=== PATIENT | female | born 1975 | race Caucasian/White ===

== ENCOUNTER 2018-10-05 12:37 | Observation (INO) | payer MEDICAID ==
[~2018-10-05] VITALS: Ht 170.2 cm; Wt 93.4 kg
--- NOTE | 2018-10-05 12:47 | NUR ---
PT TAKEN TO L&D AT THIS TIME.
[2018-10-05 13:24] VITALS: BP 92/54
[2018-10-05] MEDS ORDERED: FERR-252 PO (14:08)
[2018-10-05] MEDS ORDERED: PREN-380 PO (14:08)
[2018-10-05 14:46] LABS: BASOPHILS % (AUTO) 0.5 % (0.0-2.0); EOSINOPHILS # (AUTO) 0.1 K/uL (0-0.4); EOSINOPHILS % (AUTO) 1.3 % (0.0-4.0); HEMOGLOBIN 13.4 g/dL (12.0-16.0); LYMPHOCYTES # (AUTO) 1.2 K/uL (2.5-16.5); LYMPHOCYTES % (AUTO) 15.5 % (20.5-51.1); MEAN CORPUSCULAR HEMOGLOBIN 32 pg (27-31); MEAN CORPUSCULAR HGB CONC 33 g/dL (33-37); MEAN CORPUSCULAR VOLUME 94.6 fL (80-94); MONOCYTES # (AUTO) 0.6 K/uL (0.8-1.0); MONOCYTES % (AUTO) 8.4 % (1.7-9.3); NEUTROPHILS # (AUTO) 5.7 K/uL (1.8-7.7); NEUTROPHILS % (AUTO) 74.3 % (42.2-75.2); PLATELET COUNT (AUTO) 172 K/uL (140-450); RED BLOOD CELL COUNT(AUTO) 4.23 MIL/uL (4.20-5.40); RED CELL DISTRIBUTION WIDTH 14.7 % (11.6-13.7); WHITE BLOOD COUNT (AUTO) 7.7 K/uL (4.8-10.8)
[2018-10-05 15:04] LABS: ALBUMIN 2.7 g/dL (3.4-5.0); CARBON DIOXIDE 26.3 mmol/L (21-32); CREATININE 0.6 mg/dL (0.6-1.3); POTASSIUM 4.3 mmol/L (3.5-5.1); TOTAL BILIRUBIN 0.4 mg/dL (0.0-1.0)
[2018-10-05 15:13] LABS: APPEARANCE,URINE CLEAR (CLEAR); BILIRUBIN,URINE NEGATIVE (NEGATIVE); BLOOD, URINE TRACE-L (NEGATIVE); COLOR,URINE YELLOW (YELLOW); LEUKOCYTE ESTERASE ,URINE NEGATIVE (NEGATIVE); NITRITE, URINE NEGATIVE (NEGATIVE); UGLUCOSE NEGATIVE (NEGATIVE)
[2018-10-05 15:25] LABS: RBC,URINE 0 /HPF (0-5); WBC,URINE 0-5 /HPF (0-5)
== END 2018-10-05 16:35 | disposition home or self-care (01) ==
LOC: MED 12:37 → MLD 12:48 → INTOOBSV 13:00
PROVIDERS: ADMIT Obstetrics & Gynecology; ATTEND Obstetrics & Gynecology
DX: O26.893 Other specified pregnancy related conditions, third trimester (principal); R10.9 Unspecified abdominal pain; O21.2 Late vomiting of pregnancy; Z3A.29 29 weeks gestation of pregnancy
CPT/HCPCS: 36415; 80053; 81001; 85025; G0378; 99281

== ENCOUNTER 2018-12-14 09:36 | Inpatient (IN) | payer MEDICAID ==
[~2018-12-14] VITALS: Ht 170.2 cm; Wt 98.9 kg
[~2018-12-14 09:36] MED LIST: FERR-252 PO; PREN-380 PO
[2018-12-14] MEDS ORDERED: LACTATED RINGERS 1,000 ML IV SCH (10:04)
[2018-12-14] MEDS ORDERED: CARBOPROST 250 MCG/ML AMP IM PRN (10:05)
[2018-12-14] MEDS ORDERED: METHYLERGONOVINE 0.2 MG/ML AMP IM PRN (10:05)
[2018-12-14] MEDS ORDERED: NALBUPHINE 10 MG/ML AMP IVP PRN (10:05)
[2018-12-14] MEDS ORDERED: PROMETHAZINE 25 MG/ML VIAL IVP PRN (10:05)
[2018-12-14 10:15] VITALS: BP 106/59
[2018-12-14 10:41] LABS: BASOPHILS % (AUTO) 0.5 % (0.0-2.0); EOSINOPHILS # (AUTO) 0.1 K/uL (0-0.4); EOSINOPHILS % (AUTO) 0.8 % (0.0-4.0); HEMATOCRIT 39.6 % (36-48); HEMOGLOBIN 13.1 g/dL (12.0-16.0); LYMPHOCYTES # (AUTO) 1.1 K/uL (2.5-16.5); LYMPHOCYTES % (AUTO) 13.4 % (20.5-51.1); MEAN CORPUSCULAR HEMOGLOBIN 31 pg (27-31); MEAN CORPUSCULAR HGB CONC 33 g/dL (33-37); MONOCYTES # (AUTO) 0.7 K/uL (0.8-1.0); MONOCYTES % (AUTO) 9.2 % (1.7-9.3); NEUTROPHILS # (AUTO) 6.1 K/uL (1.8-7.7); NEUTROPHILS % (AUTO) 76.1 % (42.2-75.2); PLATELET COUNT (AUTO) 174 K/uL (140-450); RED BLOOD CELL COUNT(AUTO) 4.26 MIL/uL (4.20-5.40); RED CELL DISTRIBUTION WIDTH 14.6 % (11.6-13.7)
[2018-12-14 10:56] LABS: BILIRUBIN,URINE NEGATIVE (NEGATIVE); BLOOD, URINE TRACE-I (NEGATIVE); COLOR,URINE YELLOW (YELLOW); LEUKOCYTE ESTERASE ,URINE 1+ (NEGATIVE); NITRITE, URINE NEGATIVE (NEGATIVE); UGLUCOSE NEGATIVE (NEGATIVE)
[2018-12-14] MEDS ORDERED: AMPICILLIN 2,000 MG in NACL 0.9% MINI-BAG PLUS 100 ML IV SCH (11:00)
[2018-12-14 11:22] LABS: APPEARANCE,URINE SLIGHTLY HAZY (CLEAR)
[2018-12-14 11:23] LABS: RBC,URINE 0-5 /HPF (0-5)
[2018-12-14 11:24] LABS: WBC,URINE 0-5 /HPF (0-5)
[2018-12-14] MEDS ORDERED: AMPICILLIN 2,000 MG VIAL ONE (11:39)
[2018-12-14 12:07] LABS: POTASSIUM 4.1 mmol/L (3.5-5.1)
[2018-12-14 12:08] LABS: ALBUMIN 2.6 g/dL (3.4-5.0); ANION GAP 14.1 (8-16); CREATININE 0.6 mg/dL (0.6-1.3); TOTAL BILIRUBIN 0.3 mg/dL (0.0-1.0)
[2018-12-14] MEDS ORDERED: MISOPROSTOL 25 MCG TAB ONE ×2 (14:39→18:50)
[2018-12-14] MEDS: MISOPROSTOL 25 MCG TAB VG PRN ×2 (14:42→18:55)
[2018-12-14] MEDS ORDERED: MISOPROSTOL 200 MCG TAB VG SCH (18:00)
[2018-12-14] MEDS ORDERED: AMPICILLIN 1,000 MG VIAL ONE ×2 (18:49→22:50)
[2018-12-14] MEDS: AMPICILLIN 1,000 MG in NACL 0.9% MINI-BAG PLUS 50 ML IV SCH ×2 (18:57→22:55)
[2018-12-14] MEDS ORDERED: NALBUPHINE 10 MG/ML AMP ONE (23:36)
[2018-12-14] MEDS ORDERED: PROMETHAZINE 25 MG/ML VIAL ONE (23:36)
[2018-12-15] MEDS ORDERED: OXYTOCIN 20 UNITS/LR PREMIX 1,000 ML IV ONE (00:59)
[2018-12-15] MEDS ORDERED: MEASLES, MUMPS, AND RUBELLA 1 VIAL SQVAC PRN (01:50)
[2018-12-15] MEDS ORDERED: BENZOCAINE/MENTHOL 20%-0.5% 60 GM CAN TP PRN (01:50)
[2018-12-15] MEDS ORDERED: METHYLERGONOVINE 0.2 MG TAB PO PRN (01:50)
[2018-12-15] MEDS ORDERED: OXYTOCIN 10 UNITS/ML VIAL IM PRN (01:50)
[2018-12-15] MEDS ORDERED: METHYLERGONOVINE 0.2 MG/ML AMP IM PRN (01:50)
[2018-12-15] MEDS ORDERED: METHYLERGONOVINE 0.2 MG/ML AMP ONE (04:12)
[2018-12-15] MEDS: IBUPROFEN 800 MG TAB PO PRN ×2 (09:52→22:22)
[2018-12-15] MEDS ORDERED: LACTATED RINGERS 1,000 ML IV SCH ×2 (12:50)
[2018-12-15 13:02] LABS: BASOPHILS % (AUTO) 0.2 % (0.0-2.0); EOSINOPHILS % (AUTO) 0.3 % (0.0-4.0); HEMATOCRIT 36.8 % (36-48); HEMOGLOBIN 12.1 g/dL (12.0-16.0); LYMPHOCYTES # (AUTO) 1.2 K/uL (2.5-16.5); LYMPHOCYTES % (AUTO) 10.2 % (20.5-51.1); MEAN CORPUSCULAR HEMOGLOBIN 30 pg (27-31); MEAN CORPUSCULAR HGB CONC 33 g/dL (33-37); MEAN CORPUSCULAR VOLUME 92.8 fL (80-94); MONOCYTES # (AUTO) 0.9 K/uL (0.8-1.0); NEUTROPHILS # (AUTO) 9.5 K/uL (1.8-7.7); NEUTROPHILS % (AUTO) 81.3 % (42.2-75.2); PLATELET COUNT (AUTO) 159 K/uL (140-450); RED BLOOD CELL COUNT(AUTO) 3.97 MIL/uL (4.20-5.40); RED CELL DISTRIBUTION WIDTH 14.5 % (11.6-13.7); WHITE BLOOD COUNT (AUTO) 11.6 K/uL (4.8-10.8)
[2018-12-15] MEDS ORDERED: INFLUENZA VACCINE QUAD 0.5 ML SYR IMVAC PRN (22:05)
[2018-12-15] MEDS ORDERED: INFLUENZA VACCINE QUAD 0.5 ML SYR IMVAC ONE (22:08)
== END 2018-12-17 15:50 | disposition home or self-care (01) | DRG 560 ==
LOC: MFCC 09:36 → MLD 18:24 → MFCC 20:07
PROVIDERS: ADMIT Obstetrics & Gynecology; ATTEND Obstetrics & Gynecology
PROC: 10E0XZZ Delivery of Products of Conception, External Approach (ICD-10-PCS; principal; 2018-12-15)
PROC: 3E02340 Introduction of Influenza Vaccine into Muscle, Percutaneous Approach (ICD-10-PCS; 2018-12-15)
PROC: 3E0234Z Introduction of Serum, Toxoid and Vaccine into Muscle, Percutaneous Approach (ICD-10-PCS; 2018-12-15)
PROC: 3E0134Z Introduction of Serum, Toxoid and Vaccine into Subcutaneous Tissue, Percutaneous Approach (ICD-10-PCS; 2018-12-15)
PROC: 0KQM0ZZ Repair Perineum Muscle, Open Approach (ICD-10-PCS; 2018-12-15)
DX: O70.1 Second degree perineal laceration during delivery (principal); O99.824 Streptococcus B carrier state complicating childbirth; Z23 Encounter for immunization; Z3A.39 39 weeks gestation of pregnancy; Z37.0 Single live birth
CPT/HCPCS: 36415; 59200; 59409; 76815; 80053; 81001; 85025; 86592; 86886; 86900; 86901; 87086; 90707; 90715; J0290; J2210; J2300; J2550; J2590; J7120; Q0092